=== PATIENT | male | born 1930 | race Two or more races ===

== ENCOUNTER → 2017-05-31 | Day surgery (SDC) | payer MEDICARE, MEDICAID ==
[~2017-05-31] VITALS: Ht 167.6 cm; Wt 51.9 kg
[~2017-05-31] MED LIST: ALL DAY ALLERGY10 M2 PO; COREG 3.1253.125 MG PO; COZAAR50 MG PO; CRESTOR20 MG PO; LAXATIVE5 M1 PO; LEVEMIR100 UNIT/1 SUB-Q; NORCO 5-325 TA1 EACH PO; NOVOLOG100 UNIT/M SUB-Q; PROTONIX20 MG PO; RENVELA800 MG PO
--- NOTE | ~2017-05-31 | OR ---
PATIENT'S NAME: DOMINIC HAWKINS [facility] AGE: 86 Y [address] ROOM: [place], [place] [id number] [place] [facility] [place]: 05/31/2017 OR/Procedure Report DISCHARGE DATE: FAMILY PHYSICIAN: PHYSICIAN, NO ATTENDING PHYSICIAN: LOCO TIRADO SURGEON: Loco Tirado MD MULTIFOCAL BUTTON INSPECTOR: DATE OF PROCEDURE: 05/31/2017 PREOPERATIVE DIAGNOSIS: End-stage renal disease. POSTOPERATIVE DIAGNOSIS: End-stage renal disease. PROCEDURE: Right arm brachiocephalic AV fistula. LABELS MOLDER: NOHEMI Lucero. ANESTHESIA: General. ESTIMATED BLOOD LOSS: 10 mL. OPERATIVE FINDINGS: Good thrill and bruit in the fistula. Strong radial and ulnar signal at the end of the case. DESCRIPTION OF PROCEDURE: The patient was brought to the operating room, placed supine on the table, placed under general anesthesia, prepped and draped in a sterile manner. Preoperative time-out was performed. The patient received preoperative antibiotics. We made a standard incision 2 cm proximal to the antecubital fossa dissected down the fascia, incised the fascia in a longitudinal manner. Dissected out the brachial artery in a 360-degree fashion. We then dissected out the cephalic vein in a 360-degree fashion. We ligated the skin then transected. We gave 5000 units of heparin. We made arteriotomy to size of 4 mm using 11 blade and Jackson scissors. We then did a standard 6-0 Prolene anastomosis from the vein to the artery. We removed the clamps. There was excellent flow into the fistula. There was strong radial and ulnar signal. We had to use a total of 5000 units of heparin for anticoagulation reversed with protamine. Thrombin was used locally in the wound. The layers were closed with 2-0 and 3-0 Vicryl. Skin was closed with running 4-0 Monocryl. The patient tolerated the procedure well and transferred to recovery room and home later that day. LOCO TIRADO MD PATIENT'S NAME: DOMINIC HAWKINS [facility] AGE: 86 Y [address] ROOM: [place], [place] [id number] [place] [facility] [place]: 05/31/2017 OR/Procedure Report DISCHARGE DATE: FAMILY PHYSICIAN: NATIVIDAD KWAN ATTENDING PHYSICIAN: LOCO TIRADO/raf /[id number] d: 05/31/171812 t: 06/06/171811, OPERATIVE SUMMARY
[2017-05-31 09:57] LABS: BASOPHIL % 0.4 %; EOSINOPHIL # 0.5 K/uL (0.0-0.5); EOSINOPHIL % 5.5 %; HEMOGLOBIN 9.8 g/dL (11.0-16.0); IMMATURE GRANULOCYTE % 0.5 %; LYMPHOCYTE # 1.5 K/uL (0.8-4.0); LYMPHOCYTE % 17.7 %; MCH 29.8 pg (27.0-34.0); MCHC 32.7 gm/dL (32.0-36.5); MCV 91.2 fl (83.0-98.0); MONOCYTE # 0.9 K/uL (0.0-1.0); MONOCYTE % 10.1 %; MPV 11.2 fl (9.4-12.4); NEUTROPHIL # (ANC) 5.6 K/uL (1.4-9.0); NEUTROPHIL % 65.8 %; NRBC % 0 /100WBC (0-0.00); PLATELET COUNT 118 K/uL (150-450); RBC 3.29 M/uL (3.50-5.50); RDW-CV 14.6 % (11.9-14.6); WBC 8.4 K/uL (4.0-11.0)
[2017-05-31 10:16] LABS: ALBUMIN 3.3 gm/dL (3.5-5.0); ANION GAP 10.3 (10.0-19.0); CALCIUM 8.6 mg/dL (8.5-10.5); POTASSIUM 4.3 mMol/L (3.7-5.1); TOTAL BILIRUBIN 0.4 mg/dL (0.0-1.5); TOTAL PROTEIN 7.1 g/dL (6.0-8.4)
[2017-05-31 10:26] LABS: CREATININE 4.8 mg/dL (0.6-1.3)
== END | disposition disaster alternative care site (69) ==
LOC: GPOC 05-25 14:00 → GSDC 09:21 → GPOC 10:00
PROVIDERS: Surgery Vascular Surgery
DX: E11.22 Type 2 diabetes mellitus with diabetic chronic kidney disease (principal); I13.2 Hypertensive heart and chronic kidney disease with heart failure and with stage 5 chronic kidney disease, or end stage renal disease; I50.9 Heart failure, unspecified; N18.6 End stage renal disease; I25.10 Atherosclerotic heart disease of native coronary artery without angina pectoris; E78.00 Pure hypercholesterolemia, unspecified; D64.9 Anemia, unspecified; Z99.2 Dependence on renal dialysis; Z79.899 Other long term (current) drug therapy; Z88.0 Allergy status to penicillin; Z88.6 Allergy status to analgesic agent; Z91.041 Radiographic dye allergy status
CPT/HCPCS: J0690; J1644; J2001; J2720; J7030